=== PATIENT | male | born 1960 | race Caucasian/White ===

== ENCOUNTER 2018-11-17 11:17 | Emergency (ER) | payer OTHER ==
[2018-11-17 11:18] VITALS: BMI 32.8
[2018-11-17] MEDS ORDERED: Sodium Chloride 0.9% 1,000 ML IV ONE (11:49)
[2018-11-17 11:59] LABS: BASO % 0.2 % (0.0-2.0); EOS % 0.3 % (0.0-4.0); HEMOGLOBIN 15.2 g/dL (12.0-18.0); LYMPH # 0.8 K/uL (1.0-4.3); LYMPH % 15.3 % (20.0-40.0); MEAN CELL VOLUME 92.7 fL (80.0-94.0); MEAN CORPUSCULAR HEMOGLOBIN 31.6 pg (27.0-31.0); MEAN CORPUSCULAR HGB CONC 34.1 g/dL (33.0-37.0); MEAN PLATELET VOLUME 8.7 fL (7.2-11.7); MONO # 0.3 K/uL (0.0-0.8); MONO % 5.2 % (0.0-10.0); NEUT # 4.3 K/uL (1.8-7.0); RBC 4.81 Mil/uL (4.40-5.90); RED CELL DISTRIBUTION WIDTH 13.2 % (11.5-14.5); WHITE BLOOD COUNT 5.4 K/uL (4.8-10.8)
--- NOTE | 2018-11-17 12:09 | C.PDOC ---
History Of Present Illness 58-year-old male presents to the ED complaining of bilateral leg pain for 3 days, left greater than right. He reports pain to the entire leg, which worsens with walking. Patient notes he was on his knees lying floor panels last week, but denies any blunt trauma or fall. Otherwise he denies any lower extremity swelling, chest pain, or SOB. Additionally patient complains of upper abdominal pain associated with diarrhea. He also vomited yesterday. Patient denies any fevers, chills, or dark or bloody stool. He denies prior history of gastritis or recent alcohol use. Time Seen by Provider: 11/17/18 11:57 Chief Complaint (Nursing): Abdominal Pain History Per: Patient History/Exam Limitations: no limitations Onset/Duration Of Symptoms: Days (x 3) Current Symptoms Are (Timing): Still Present Location Of Pain/Discomfort: Epigastric Associated Symptoms: Vomiting, Diarrhea Past Medical History Reviewed: Historical Data, Nursing Documentation, Vital Signs Vital Signs: Last Vital Signs Temp 98.9 F 11/17/18 11:27 Pulse 60 11/17/18 11:27 Resp 18 11/17/18 11:27 BP 158/85 H 11/17/18 11:27 Pulse Ox 99 11/17/18 11:27 - Medical History PMH: Benign Prostatic Hyperplasia, Kidney Stones - EMUZE Procedures INSERT INDWELLING CATH (03/01/15) REPLACE INDWELLING CATH (03/03/15) Family History: States: Unknown Family Hx - Social History Hx Tobacco Use: No Hx Alcohol Use: No Hx Substance Use: No - Immunization History Hx Tetanus Toxoid Vaccination: No Hx Influenza Vaccination: No Hx Pneumococcal Vaccination: No Review Of Systems Constitutional: Negative for: Fever, Chills Cardiovascular: Negative for: Chest Pain Respiratory: Negative for: Shortness of Breath Gastrointestinal: Positive for: Vomiting, Abdominal Pain, Diarrhea. Negative for: Melena, Hematochezia Genitourinary: Negative for: Dysuria, Hematuria Musculoskeletal: Positive for: Leg Pain (Bilateral) Skin: Negative for: Lesions, Bruising Neurological: Negative for: Weakness, Numbness, Incoordination Physical Exam - Physical Exam Appears: Non-toxic, No Acute Distress Skin: Warm, Dry Head: Atraumatic, Normacephalic Eye(s): bilateral: Normal Inspection Oral Mucosa: Moist Neck: Normal ROM Chest: Symmetrical Cardiovascular: Rhythm Regular, No Murmur Respiratory: Normal Breath Sounds, No Rales, No Rhonchi, No Wheezing Gastrointestinal/Abdominal: Soft, Tenderness (epigastric), No Guarding, No Rebound Extremity: Normal ROM, Tenderness (non-focal tenderness to bilateral lower extremities), No Deformity, No Swelling, Other (No erythema or skin changes, no palpable mass or cord) Pulses: Left Dorsalis Pedis: Normal, Right Dorsalis Pedis: Normal Neurological/Psych: Oriented x3, Normal Motor, Normal Sensation Gait: Steady ED Course And Treatment - Laboratory Results Result Diagrams: 11/17/18 11:53 11/17/18 11:53 O2 Sat by Pulse Oximetry: 99 (RA) Pulse Ox Interpretation: Normal Medical Decision Making Medical Decision Making: Impression: 1) Lower extremity pain, bilateral 2) Epigastric pain, Vomiting, Diarrhea Plan: --Basic bloodwork --NS IV fluids --20 mg IV Pepcid --30 mg IV Toradol Progress/Updates: Labs reviewed with no acute findings. Patient remained afebrile well and in no acute distress. Recommend follow up with PCP and to take analgesics as needed. Disposition Counseled Patient/Family Regarding: Diagnosis, Need For Followup, Rx Given - Disposition Referrals: [facility] [Outside] [email or web address] [Outside] Disposition: HOME/ ROUTINE Disposition Time: 12:32 Condition: STABLE Additional Instructions: Por favor, tome la medicina segn sea necesario para el dolor seguimiento con taylor mdico Prescriptions: Famotidine [Pepcid] 20 mg PO DAILY #20 tab Naproxen [Naprosyn] 1 tab PO BID PRN #25 tab PRN Reason: Pain Instructions: Acute Abdomen (Belly Pain), Adult (DC), Knee Pain (DC) Forms: Gen Discharge Inst Albanian Print Language: LAO - POA Present On Arrival: None - Clinical Impression Clinical Impression: Bilateral leg pain, Upper abdominal pain - PA / [employer] / Resident Statement MD/DO has reviewed & agrees with the documentation as recorded. - Scribe Statement The provider has reviewed the documentation as recorded by the Scribe Sheri Anne All medical record entries made by the Scribe were at my direction and personally dictated by me. I have reviewed the chart and agree that the record accurately reflects my personal performance of the history, physical exam, medical decision making, and the department course for this patient. I have also personally directed, reviewed, and agree with the discharge instructions and disposition.
[2018-11-17 12:12] LABS: ALB/GLOB RATIO 1.5 (1.0-2.1); ALBUMIN 4.5 g/dL (3.5-5.0); ALT/SGPT 46 U/L (21-72); AST/SGOT 37 U/L (17-59); BLOOD UREA NITROGEN 31 mg/dL (9-20); CALCIUM 8.6 mg/dl (8.6-10.4); GFR NON-AFRICAN AMERICAN > 60
[2018-11-17 13:01] VITALS: BP 142/76; PULSE 62; RESP 16; TEMP 98.8
[2018-11-17 13:44] VITALS: O2SAT 99
== END 2018-11-17 13:00 | disposition home or self-care (01) ==
LOC: C.ER 11:17
DX: M79.605 Pain in left leg (principal); M79.604 Pain in right leg; R10.13 Epigastric pain
CPT/HCPCS: 36415; 80053; 85025; 96374; 96375; 99284; J1885; J7030